=== PATIENT | male | born 1965 | race Caucasian/White ===

== ENCOUNTER 2019-08-26 18:59 | Emergency (ER) | payer MEDICAID, OTHER, SELFPAY ==
[~2019-08-26] VITALS: Ht 185.4 cm; Wt 104.0 kg
[2019-08-26 19:03] VITALS: BP 144/82
[2019-08-26 19:36] LABS: RAPID INFLUENZA A Negative (Negative); RAPID INFLUENZA B Negative (Negative)
== END 2019-08-26 20:07 | disposition home or self-care (01) ==
LOC: ED 19:30
DX: J06.9 Acute upper respiratory infection, unspecified (principal); F17.210 Nicotine dependence, cigarettes, uncomplicated; J45.909 Unspecified asthma, uncomplicated
CPT/HCPCS: 71046; 87081; 87400; 87880; 99284